=== PATIENT | male | born 1980 | race Two or more races ===

== ENCOUNTER 2017-02-03 16:22 | Emergency (ER) | payer SELFPAY ==
[~2017-02-03] VITALS: Ht 177.8 cm; Wt 86.2 kg
[2017-02-03 16:22] VITALS: BP 124/78
[2017-02-03 16:56] LABS: BASOPHILS # (AUTO) 0.2 /CMM (0.0-0.2); BASOPHILS % (AUTO) 1.5 % (0.0-2.0); EOSINOPHILS # (AUTO) 0.1 /CMM (0.0-0.7); EOSINOPHILS % (AUTO) 1.1 % (0.0-6.0); HEMATOCRIT 48 % (39-51); HEMOGLOBIN 16.6 g/dL (13.5-17.5); LYMPHOCYTES % (AUTO) 37.6 % (20.0-44.0); MEAN CORPUSCULAR HEMOGLOBIN 32 PG (26.0-33.0); MEAN CORPUSCULAR HGB CONC 35 g/dl (31.0-36.0); MEAN CORPUSCULAR VOLUME 91 fL (80-96); MONOCYTES # (AUTO) 0.8 /CMM (0.1-1.30); MONOCYTES % (AUTO) 7.5 % (2.0-12.0); NEUTROPHILS # (AUTO) 5.7 /CMM (1.8-8.9); NEUTROPHILS % (AUTO) 52.3 % (43.0-81.0); PLATELET COUNT (AUTO) 191 /CMM (150-450); RDW COEFFICIENT OF VARIATION 12.1 (11.5-15.0); RED BLOOD CELL COUNT(AUTO) 5.28 MIL/uL (4.5-6.0); WHITE BLOOD COUNT (AUTO) 10.8 K/uL (4.3-11.0)
[2017-02-03 17:07] LABS: CALCIUM, SERUM 9.1 mg/dL (8.5-10.1); CREATININE 1.2 mg/dL (0.6-1.3); POTASSIUM 4.1 mmol/L (3.5-5.1)
[2017-02-03 17:13] LABS: ALBUMIN 4.1 g/dL (3.4-5.0); BILIRUBIN,TOTAL 0.4 mg/dL (0.2-1.0); TOTAL PROTEIN, SERUM 7.8 g/dL (6.4-8.2)
== END 2017-02-03 18:41 | disposition home or self-care (01) ==
LOC: ER 16:25
DX: R53.1 Weakness (principal); E11.9 Type 2 diabetes mellitus without complications; Z90.89 Acquired absence of other organs
CPT/HCPCS: 36415; 80053-TC; 85025-TC; A4606; Z7610

== ENCOUNTER 2018-07-12 10:44 | Emergency (ER) | payer MEDICAID ==
[~2018-07-12] VITALS: Ht 177.8 cm; Wt 79.8 kg
[2018-07-12 10:50] VITALS: BP 118/68
--- NOTE | 2018-07-12 11:40 | NUR ---
Patient discharged to home in stable condition. Written and verbal after care instructions given. Patient verbalizes understanding of instruction.
== END 2018-07-12 11:41 | disposition home or self-care (01) ==
LOC: ER 10:44
DX: J32.9 Chronic sinusitis, unspecified (principal); Z90.89 Acquired absence of other organs
CPT/HCPCS: 99283; A4606

== ENCOUNTER 2020-08-22 11:25 | Emergency (ER) | payer MEDICAID ==
[~2020-08-22] VITALS: Ht 177.8 cm; Wt 81.2 kg
[2020-08-22 11:50] VITALS: BP 136/84
== END 2020-08-22 12:42 | disposition home or self-care (01) ==
LOC: ER 11:31
DX: I10 Essential (primary) hypertension (principal); Z90.89 Acquired absence of other organs; Z98.890 Other specified postprocedural states

== ENCOUNTER 2021-11-23 18:11 | Emergency (ER) | payer MEDICAID ==
[~2021-11-23] VITALS: Ht 177.8 cm; Wt 86.2 kg
[2021-11-23 19:03] VITALS: BP 121/75
[2021-11-23] MEDS ORDERED: ACETAMINOPHEN 325 MG TABLET ONE (20:05)
[2021-11-23] MEDS ORDERED: ACETAMINOPHEN 325 MG TABLET PO ONE (20:30)
--- NOTE | 2021-11-23 20:33 | NUR ---
Patient discharged to home in stable condition. Written and verbal after care instructions given. Patient verbalizes understanding of instruction.
[2021-11-24] MEDS ORDERED: AMOX-430 PO (06:48)
== END 2021-11-23 22:29 | disposition home or self-care (01) ==
LOC: ER 18:13
DX: U07.1 COVID-19 (principal); J32.9 Chronic sinusitis, unspecified; Z90.89 Acquired absence of other organs; Z60.2 Problems related to living alone

== ENCOUNTER 2021-11-24 05:47 | Emergency (ER) | payer MEDICAID ==
[~2021-11-24] VITALS: Ht 177.8 cm; Wt 86.2 kg
[2021-11-24 06:06] VITALS: BP 139/82
--- NOTE | 2021-11-24 06:10 | NUR ---
ARELIS C/O SINUS PROBLEM. SEEN AT [facility] YESTERDAY. REQUESTING MEDS. TOLERATING R/A WELL AT 98%. SAFETY MEASURES IN PLACE
[2021-11-24] MEDS ORDERED: AMOX-430 PO (06:48)
--- NOTE | 2021-11-24 06:57 | NUR ---
Patient discharged to home in stable condition. RX Written and verbal after care instructions given. Patient verbalizes understanding of instruction. PT ambulatory with a steady gait
== END 2021-11-24 06:58 | disposition home or self-care (01) ==
LOC: ER 05:49
DX: J01.90 Acute sinusitis, unspecified (principal); Z90.89 Acquired absence of other organs; Z60.2 Problems related to living alone; Z79.899 Other long term (current) drug therapy